=== PATIENT | female | born 1995 | race Caucasian/White ===

== ENCOUNTER 2017-10-11 09:47 | Outpatient (REF) | payer OTHER, SELFPAY ==
[2017-10-12 14:03] LABS: Chlamydia Result Negative; GC Result Negative; Specimen Description CERVIX
== END 2017-10-11 09:48 ==
LOC: LBN 09:47
PROVIDERS: PCP General Practice; Visit Provider Nurse Practitioner Women's Health
DX: Z11.3 Encounter for screening for infections with a predominantly sexual mode of transmission (principal)
CPT/HCPCS: 87491; 87591

== ENCOUNTER 2018-01-18 00:18 | Outpatient (CLI) | payer OTHER, SELFPAY ==
--- NOTE | 2018-01-18 13:50 | DI.US_ITS ---
SYMPTOMS/DIAGNOSIS: RT SIDED PELVIC PAIN, R10.2 PELVIC AND PERINEAL PAIN PELVIC ULTRASOUND: Transabdominal and transvaginal examination was performed. The uterus measures 7.1 cm long x 3.3 cm AP x 5.1 cm transverse. The endometrial stripe is within normal limits at .5 cm. Note is made of an intrauterine device seen within the endometrial canal. There is a small amount of fluid seen within the endometrial canal. Both ovaries were visualized. They are normal in size. Small follicular cysts are seen bilaterally. There is normal blood flow to both ovaries. No evidence of torsion or ovarian mass is seen. There is a small amount of free fluid seen in the pelvis adjacent to the left ovary and along the fundus of the uterus. This is likely physiologic. IMPRESSION: Intrauterine device in good position within the endometrial canal, otherwise negative examination.
== END 2018-01-18 00:38 ==
PROVIDERS: PCP General Practice; Visit Provider Nurse Practitioner Women's Health
DX: R10.2 Pelvic and perineal pain (principal); R10.31 Right lower quadrant pain; Z97.5 Presence of (intrauterine) contraceptive device
CPT/HCPCS: 76830; 76856

== ENCOUNTER 2018-05-09 20:09 | Emergency (ER) | payer OTHER, SELFPAY ==
[2018-05-09 20:15] VITALS: BP 123/70; PULSE 84; RESP 16; TEMP 36.3; O2SAT 99
--- NOTE | 2018-05-09 20:31 | W.ED.GENAD ---
Discharge Plan Disposition Patient Disposition: HOME Discharge Details Chief Complaint: Orthopedic Clinical Impression: Contusion of foot, right Primary Care Provider: None,None ED Provider: Yvan Aguirre Home Meds and New Rx's Prescriptions: Continued ibuprofen 800 mg tablet 800 mg PO TID PRN (Reason: pain) Qty: 30 RF: 1 norgestimate-ethinyl estradiol [Ortho Tri-Cyclen (28)] 0.18/0.215/0.25 mg-35 mcg (28) tablet 1 tab PO DAILY Qty: 84 RF: 4 lamotrigine [Lamictal] 150 mg Tablet 150 mg PO DAILY RF: 0 Discharge Instructions Instructions: Foot Contusion (ED) Additional Instructions: Use crutches and orthopedic foot splint over the next 1-2 weeks. You may bear weight as tolerated. Please take ibuprofen over the counter - dose according to label. Keep foot elevated when seated to reduce swelling. Follow-up with your primary care physician as needed and if pain persists greater than 1 week. Return to the ER for any worsening or new concerning symptoms. Medical Decision Making 20:35 --23-year-old female here with right dorsal foot pain after dropping 45 pound weight on her foot 2 hours prior to arrival. TTP over 1-3 MT dorsally. Neurovascular intact distally. Concern for fracture versus contusion. Plan to treat with ibuprofen and check foot x-ray. 21:33 -- foot xray interpreted by radiology: IMPRESSION: Negative for acute skeletal pathology. Suspect contusion. Ortho shoe and crutches provided. Usual and customary discharge instructions were reviewed with patient. HPI General Mode of arrival: ambulatory. Date/Time Provider Initiated Documentation: 05/09/18 20:21. Limitations to Documentation: no limitations. Information obtained by: patient. HPI Narrative: 23-year-old female presents with chief complaint of foot pain. Patient notes that she accidentally dropped a 45 pound weight on her right foot about 2 hours prior to arrival. She has had pain in her foot since the trauma. Pain is mild and worse with movement of her great toe, on palpation of her dorsal foot or with ambulation. She has some tingling in her toes. Related Data Home Medications Medication Instructions Recorded Confirmed ibuprofen 800 mg tablet 800 mg PO TID PRN #30 tab 01/29/18 05/09/18 norgestimate-ethinyl estradiol 1 tab PO DAILY #84 tab 11/30/18 03/07/19 0.18 mg/0.215mg/0.25mg-35 mcg(28)tablet lamotrigine [Lamictal] 150 mg PO DAILY 05/09/18 05/09/18 Previous Rx's Medication Instructions Recorded ibuprofen 800 mg tablet 800 mg PO TID PRN #30 tab 01/29/18 norgestimate-ethinyl estradiol 1 tab PO DAILY #84 tab 02/01/18 0.18 mg/0.215mg/0.25mg-35 mcg(28)tablet Allergies Allergy/AdvReac Type Severity Reaction Status Date / Time bees Allergy Uncoded 05/09/18 20:17 General Stated Complaint: Orthopedic PORFIRIO: 4 Review of Systems Musculoskeletal Reports as per HPI Integumentary/Breasts Reports other (No laceration) [facility] Medical History acne facial Surgical History Repair, ACL Family History Other Diabetes Heart disease Mental disorder Social History Smoking and Tabacco status: Never Exam Const General: cooperative and healthy appearing Orientation: alert and awake Cardio Rate: regular rate Rhythm: regular rhythm Pulses: dorsalis pedis pulses present Skin Trauma: no lacerations Extrem Right lower extremity: foot Details: normal capillary refill and tenderness Location: of the dorsal foot Location: medially; no laceration Course Vital Signs Temperature 36.3 C L 05/09/18 20:15 Pulse 84 05/09/18 20:15 Respiratory Rate 16 05/09/18 20:15 Blood Pressure 123/70 05/09/18 20:15 Pulse Oximetry 99 05/09/18 20:15 Temperature 36.3 C L 05/09/18 20:15 Temperature Source Skin 05/09/18 20:15 Pulse 84 05/09/18 20:15 Respiratory Rate 16 05/09/18 20:15 Respiratory Effort 05/09/18 20:18 Blood Pressure 123/70 05/09/18 20:15 Blood Pressure Position Sitting 05/09/18 20:15 Pulse Oximetry 99 05/09/18 20:15 Oxygen Delivery Method Room Air 05/09/18 20:15 Oxygen Flow Rate 0 05/09/18 20:15
[2018-05-09] MEDS: Ibuprofen 600 MG TAB PO (20:34)
--- NOTE | 2018-05-09 20:36 | ED.GENADUL_ITS ---
Discharge Plan Disposition Patient Disposition: HOME Discharge Details Chief Complaint: Orthopedic Clinical Impression: Contusion of foot, right Primary Care Provider: None,None ED Provider: Yvan Aguirre Home Meds and New Rx's Prescriptions: Continued ibuprofen 800 mg tablet 800 mg PO TID PRN (Reason: pain) Qty: 30 RF: 1 norgestimate-ethinyl estradiol [Ortho Tri-Cyclen (28)] 0.18/0.215/0.25 mg-35 mcg (28) tablet 1 tab PO DAILY Qty: 84 RF: 4 lamotrigine [Lamictal] 150 mg Tablet 150 mg PO DAILY RF: 0 Discharge Instructions Instructions: Foot Contusion (ED) Additional Instructions: Use crutches and orthopedic foot splint over the next 1-2 weeks. You may bear weight as tolerated. Please take ibuprofen over the counter - dose according to label. Keep foot elevated when seated to reduce swelling. Follow-up with your primary care physician as needed and if pain persists greater than 1 week. Return to the ER for any worsening or new concerning symptoms. Medical Decision Making 20:35 --23-year-old female here with right dorsal foot pain after dropping 45 pound weight on her foot 2 hours prior to arrival. TTP over 1-3 MT dorsally. Neurovascular intact distally. Concern for fracture versus contusion. Plan to treat with ibuprofen and check foot x-ray. 21:33 -- foot xray interpreted by radiology: IMPRESSION: Negative for acute skeletal pathology. Suspect contusion. Ortho shoe and crutches provided. Usual and customary discharge instructions were reviewed with patient. HPI General Mode of arrival: ambulatory . Date/Time Provider Initiated Documentation: 05/09/18 20:21 . Limitations to Documentation: no limitations . Information obtained by: patient . HPI Narrative: 23-year-old female presents with chief complaint of foot pain. Patient notes that she accidentally dropped a 45 pound weight on her right foot about 2 hours prior to arrival. She has had pain in her foot since the trauma. Pain is mild and worse with movement of her great toe, on palpation of her dorsal foot or with ambulation. She has some tingling in her toes. Related Data Home Medications Medication Instructions Recorded Confirmed ibuprofen 800 mg tablet 800 mg PO TID PRN #30 tab 01/29/18 05/09/18 norgestimate-ethinyl estradiol 1 tab PO DAILY #84 tab 11/30/18 03/07/19 0.18 mg/0.215mg/0.25mg-35 mcg(28)tablet lamotrigine [Lamictal] 150 mg PO DAILY 05/09/18 05/09/18 Previous Rx's Medication Instructions Recorded ibuprofen 800 mg tablet 800 mg PO TID PRN #30 tab 01/29/18 norgestimate-ethinyl estradiol 1 tab PO DAILY #84 tab 02/01/18 0.18 mg/0.215mg/0.25mg-35 mcg(28)tablet Allergies Allergy/AdvReac Type Severity Reaction Status Date / Time bees Allergy Uncoded 05/09/18 20:17 General Stated Complaint: Orthopedic PORFIRIO: 4 Review of Systems Musculoskeletal Reports as per HPI Integumentary/Breasts Reports other (No laceration) [facility] Medical History acne facial Surgical History Repair, ACL Family History Other Diabetes Heart disease Mental disorder Social History Smoking and Tabacco status: Never Exam Const General: cooperative and healthy appearing Orientation: alert and awake Cardio Rate: regular rate Rhythm: regular rhythm Pulses: dorsalis pedis pulses present Skin Trauma: no lacerations Extrem Right lower extremity: foot Details: normal capillary refill and tenderness Location: of the dorsal foot Location: medially; no laceration Course Vital Signs Temperature 36.3 C L 05/09/18 20:15 Pulse 84 05/09/18 20:15 Respiratory Rate 16 05/09/18 20:15 Blood Pressure 123/70 05/09/18 20:15 Pulse Oximetry 99 05/09/18 20:15 Temperature 36.3 C L 05/09/18 20:15 Temperature Source Skin 05/09/18 20:15 Pulse 84 05/09/18 20:15 Respiratory Rate 16 05/09/18 20:15 Respiratory Effort 05/09/18 20:18 Blood Pressure 123/70 05/09/18 20:15 Blood Pressure Position Sitting 05/09/18 20:15 Pulse Oximetry 99 05/09/18 20:15 Oxygen Delivery Method Room Air 05/09/18 20:15 Oxygen Flow Rate 0 05/09/18 20:15
--- NOTE | 2018-05-09 20:41 | DI.RAD_ITS ---
SYMPTOMS/DIAGNOSIS: PAIN IN FOOT RIGHT FOOT: Three views. No acute fracture or dislocation is identified.
--- NOTE | 2018-05-09 21:20 | DI.VRAD_ITS ---
EXAM: XR Right Foot Complete, 3 or more Views EXAM DATE/TIME: 05/09/2018 8:31 PM CLINICAL HISTORY: 23 years old, female; Injury or trauma; Injury history: 40lb weight fell onto foot; Initial encounter; Blunt trauma; Right; Injury date: 05/09/2018 TECHNIQUE: XR Right foot 3 or more views. COMPARISON: No relevant prior studies available. FINDINGS: Bones/joints: Osseous anatomic alignment is well preserved. No acutely displaced fracture or dislocation. Joint spaces are well preserved. Soft tissues: Normal. IMPRESSION: Negative for acute skeletal pathology. Dictated and Authenticated by: Bassam Baumann MD. Ordering:DAQUAN Santoro MD
== END 2018-05-09 21:37 | disposition home or self-care (01) ==
PROVIDERS: Emergency Provider Student in an Organized Health Care Education/Training Program
DX: S90.31XA Contusion of right foot, initial encounter (principal); W20.8XXA Other cause of strike by thrown, projected or falling object, initial encounter
CPT/HCPCS: 29515; 99283; 73630; 99282; E0114

== ENCOUNTER 2018-07-24 12:08 | Outpatient (CLI) | payer OTHER, SELFPAY ==
--- NOTE | 2018-07-24 13:11 | DI.US_ITS ---
SYMPTOMS/DIAGNOSIS: RIGHT-SIDED PELVIC PAIN, DYSPAREUNIA; H/O RIGHT OVARIAN CYST RUPTURE 1 YEAR AGO PELVIC ULTRASOUND: Comparison is made with January,. The uterus measures 6.9 x 3.3 x 4.1 cm. The endometrial stripe measures 2 mm in thickness. The IUD has been removed since the previous exam. No fibroids are seen. The ovaries are normal in size and appearance and show multiple follicles bilaterally. The largest follicle is on the left ovary measuring 1 x 1.8 cm. No free fluid or hydronephrosis is seen. IMPRESSION: Pelvic ultrasound is within normal limits. There is no evidence of ovarian cyst or torsion.
== END 2018-07-24 12:28 ==
PROVIDERS: Visit Provider Nurse Practitioner Women's Health
DX: R10.2 Pelvic and perineal pain (principal); N94.10 Unspecified dyspareunia; N83.01 Follicular cyst of right ovary; N83.02 Follicular cyst of left ovary
CPT/HCPCS: 76830; 76856

== ENCOUNTER 2019-04-10 10:44 | Outpatient (REF) | payer OTHER, SELFPAY ==
--- NOTE | 2019-04-10 10:30 | PAPFT_PTH ---
PATIENT: LEONORA KINGSTON LOC: [facility] U#:[id number] AGE/SX: 24/F ROOM: RE04/10/[address]: ABHIJEET Crook : 1995 BED: DIS: 04/10/2019 SPEC #: [id number] RECD: 04/10/19 16:16 STATUS: DENIZ RENegar #: [id number] TREVOR: 04/10/19 10:[address]: Deana Mcallister DEPT: [facility] Cytology RECD BY: Rina Morgan ENTERED: 04/10/19 16:16 SP TYPE: PAPFT EMANUEL DR: None Tissues: 1 - CX/ENDOCX FOR PAP SMEARS Procedures: PAP THIN PREP/UVM Screening Comments: [id number]
[2019-04-11 14:52] LABS: Chlamydia Result Negative (Negative); GC Result Negative (Negative)
== END 2019-04-10 11:04 ==
LOC: LBN 10:44
PROVIDERS: Visit Provider Nurse Practitioner Family
DX: Z11.3 Encounter for screening for infections with a predominantly sexual mode of transmission (principal); Z12.4 Encounter for screening for malignant neoplasm of cervix
CPT/HCPCS: 87491; 87591; 88142

== ENCOUNTER 2019-09-10 03:35 | Emergency (ER) | payer OTHER, SELFPAY ==
[2019-09-10] VITALS (48 sets, daily range): BP systolic 91–113; BP diastolic 43–66; PULSE 76–123; RESP 11–24; TEMP 36.2; O2SAT 94–100
--- NOTE | 2019-09-10 03:45 | ED.GENADUL_ITS ---
Discharge Plan Disposition Patient Disposition: HOME Condition: Stable Discharge Details Chief Complaint: OD/Poison Clinical Impression: Bipolar 1 disorder Primary Care Provider: Unknown,Unknown ED Provider: Mario Collins Home Meds and New Rx's Prescriptions: New lamotrigine [Lamictal] 150 mg tablet 300 mg PO DAILY 2 Days Qty: 4 RF: 0 Continued lamotrigine [Lamictal] 150 mg tablet 300 mg PO DAILY RF: 0 Discharge Instructions Instructions: Bipolar Disorder (ED) Additional Instructions: At this time I am providing you with a total of 4 tablets of your Lamictal as a bridge until you are evaluated by your personal provider on Sunday morning at 830. Please follow-up as scheduled. Please watch for new or worsening symptoms and return to the ER for any concerns. I do recommend that you avoid alcohol as this appears to be a trigger. Medical Decision Making <Kelvin Wolf MD - Last Filed: 09/10/19 06:46> 24 yo female with hx of bipolar comes in with her significant other after she has been drinking alcohol and took 1500mg lamictal tablets around 1am in an attempt to harm her self. SHe arrives intoxicated and crying with no focal deficits and no visible trauma. She denies any drug use other athan alcohol and on exam is slurring her speech, knows her name and where she is but not the time. Will obtain labs and monitor. She does seem very anxious and has attempted to leave the room and I feel in her current intoxicated state she is at risk of harming herself so will medicate with 1mg ativan pt stable sleeping now with sable vitals, labs unremarkable other than etoh of 188. Spoke with poison control who recommended 6 hour observation and tylenol level again around 6am. Will continue to monitor until medically cleared to see mental health 2nd alcohol down to 160 and negative second tylenol, will continue to monitor until 6 hour observation completed. pt signed out to oncoming provider pending continued observation and if medically cleared mental health eval Differential Diagnosis Differential Diagnosis: alcohol intoxication, SI, depression, bipolar Lab Data Lab results reviewed: Yes I reviewed the patient's lab results. <SHOSHANA Sullivan - Last Filed: 09/10/19 10:18> I assumed care of this 24-year-old female at shift change on 09-10-19 at appro ximately [address] Wolf. Plan is that patient should be medically cleared and clinically sober by 9:30 AM and at that point can be evaluated by mental health. Last night she reports drinking alcohol and then taking a total of 10 tablets of her Lamictal. Patient is currently resting comfortably in room 5. She is awake, alert, makes good eye contact, has a normal affect. Head normocephalic, moist mucous membranes, she just finished eating breakfast. Lungs are clear to auscultation, heart, tachycardia 104. Patient appears well, nontoxic. She admits last night that she was under increased stress, drink alcohol which can be her trigger, and then took 10 tablets. She tells me she regrets doing this and does not know exactly what outcome she was hoping for. She denies any suicidal or homicidal ideations now and reports feeling safe, believes that she can be safely discharged from our ER with a plan to follow-up as an outpatient. Her one concern is that after the intentional overdose last night, her significant other did get rid of the rest of her tablets, so she is no longer with any Lamictal. She typically takes 300 mg p.o. at night. I see no indication of an emergent process that would inhibit a mental health evaluation. [facility] human services did evaluate the patient, please see the evaluation performed by Abigail. She feels as though the patient can be s afely discharged. She has made her an outpatient appointment for 8:30 in the morning on Sunday, I will provide 4 tablets of her Lamictal to bridge her until that appointment. Patient was made aware of this plan. She has no additional questions or concerns and is quite comfortable with this plan. She was encouraged to follow-up as already scheduled on Sunday, otherwise return to the ER for new or worsening symptoms. HPI <Kelvin Wolf MD - Last Filed: 09/10/19 06:46> General Mode of arrival: ambulatory . Date/Time Provider Initiated Documentation: 09/10/19 03:36 . Limitations to Documentation: no limitations . Information obtained by: patient . History of Present Illness 24 year old F presents to the emergency department with the chief complaint of took 5 of her lamotrigine pills, described as moderate, No relieving factors improve symptom(s), No exacerbating factors reported . Patient did receive the following treatments prior to arrival, none Related Data Home Medications Medication Instructions Recorded Confirmed lamotrigine 150 mg tablet 300 mg PO DAILY tab 04/10/19 09/10/19 lamotrigine [Lamictal] 300 mg PO DAILY 2 Days #4 tab 09/10/19 Previous Rx's Medication Instructions Recorded lamotrigine [Lamictal] 300 mg PO DAILY 2 Days #4 tab 09/10/19 Allergies Allergy/AdvReac Type Severity Reaction Status Date / Time bee venom protein (honey bee) Allergy Unverified 09/10/19 03:46 General Stated Complaint: OD/Poison PORFIRIO: 2 Review of Systems <Kelvin Wolf MD - Last Filed: 09/10/19 06:46> All systems reviewed & are unremarkable except as noted in HPI and below Constitutional Constitutional: Denies chills, Denies fever(s) and Denies weakness Cardiovascular Cardiovascular: Denies chest pain and Denies dyspnea Respiratory Respiratory: Denies cough and Denies dyspnea Gastrointestinal Gastrointestinal: Denies abdominal pain, Denies nausea and Denies vomiting Musculoskeletal Musculoskeletal: Denies joint swelling Neurologic Neurologic: Denies weakness PFSH <Kelvin Wolf MD - Last Filed: 09/10/19 06:46> Social History Smoking/Tobacco Use Status: Never Alcohol Intake: current Alcohol Intake frequency: a few times a month Drug use: Never Substance use type: does not use Do you feel safe at home: Yes Do you feel safe in your relationship?: Yes Female Reproductive History Menstrual Age of Menarche: 15 control method: pills Exam <Kelvin Wolf MD - Last Filed: 09/10/19 06:46> Const General: anxious Orientation: alert [facility] Head: normal to inspection Ears: external ears normal General nose exam: external nose normal Mouth: moist mucous membranes Eyes General: appearance normal, both eyes and all related structures Neck Neck: normal visual inspection Resp Effort & Inspection: normal respiratory effort and able to speak in complete sentences Cardio Rate: regular rate (HR 90 on my exam) Skin General skin exam: no rashes or lesions noted Neuro General: patient alert Extrem General: normal to inspection Psych Mental Status: mental status grossly normal Course <Kelvin Wolf MD - Last Filed: 09/10/19 06:46> Vital Signs Vital signs: Vital Signs Temperature 36.2 C L 09/10/19 03:38 Pulse 114 H 09/10/19 03:38 Respiratory Rate 16 09/10/19 03:38 Pulse Oximetry 98 09/10/19 03:38 Temperature 36.2 C L 09/10/19 03:38 Temperature Source Skin 09/10/19 03:38 Pulse 114 H 09/10/19 03:38 Respiratory Rate 16 09/10/19 03:38 Blood Pressure Position Sitting 09/10/19 03:38 Pulse Oximetry 98 09/10/19 03:38 Oxygen Delivery Method Room Air 09/10/19 03:38 Oxygen Flow Rate 0 09/10/19 03:38 Sign Out <Kelvin Wolf MD - Last Filed: 09/10/19 06:46> Sign Out Data: Sign Out Comment: lamotrigine OD, observe until 930 and if medically cleared will likely need mental health consult Last updated by Kelvin Wolf MD at 09/10/19 06:47
[2019-09-10 03:57] LABS: Abs Immature Grans 0.01 k/cumm (0.0-0.09); Absolute Basophil Count 0.03 k/cumm (0.0-0.2); Absolute Eosinophil Count 0.19 k/cumm (0.0-0.7); Absolute Lymphocyte Count 2.27 k/cumm (1.2-3.4); Absolute Monocyte Count 0.28 k/cumm (0.11-0.7); Absolute Neutrophil Count 3.04 k/cumm (1.2-6.7); BE (Venous) -1.8 mmol/L (-3-3); Basophils % 0.5; Eosinophils % 3.3; HCO3 (Venous) 23 mmol/L (22-28); HCT 40.6 % (36.0-46.0); HGB 14.1 g/dL (12.0-15.5); Immature Grans % 0.2 %; Mean Corp. HGB Concentration 34.7 g/dL (32.0-36.0); Mean Corpuscular Hemoglobin 30.5 pg (27.0-33.0); Mean Corpuscular Volume 87.7 fL (80-95); Mean Platelet Volume 10.3 fL (8.0-11.0); Monocytes % 4.8; Neutrophils % 52.2; O2 Sat (Venous) 92 % (70-80); Platelet Count 230 x1000/uL (130-400); RBC 4.63 m/cumm (4.00-5.20); RBC Distribution Width 12.8 % (11.7-14.6); TCO2 (Venous) 21 mmol/L (22-29); White Blood Cell Count 5.82 k/cumm (4.4-10.8); pCO2 (Venous) 39 mm/Hg (34-47); pH (Venous) 7.39 (7.35-7.45); pO2 (Venous) 66 mm/Hg (28-44)
[2019-09-10] MEDS: LORazepam 2 MG/ML VIAL 1 MG IVP (04:02)
[2019-09-10 04:08] LABS: HCG Qual (Serum) Negative
[2019-09-10 04:14] LABS: Bilirubin Negative (Negative); Blood Negative (Negative); Clarity Clear (Clear); Glucose Negative (Negative); Ketones Negative (Negative); Leukocyte Esterase Negative (Negative); Nitrite Negative (Negative); Specific Gravity <= 1.005 (1.005-1.025); Urobilinogen 0.2 EU/dL (Up TO 0.2)
--- NOTE | 2019-09-10 04:15 | NUR.NOTE ---
To room 5 with c/o overdose. Per pt boyfriend Fidel [phone], had been out with friends drinking this evening, had disagreement, pt took 1500mg lamictal at approx 0145, with intention to harm self. Pt arrives tearful, answering questions appropriately. Reports hx of bipolar. Per parents pt has therapist she has been seeing x 3 months and a psychiatrist she sees at [facility]. Pt changed to gown, placed on heart monitor. #[id number], med a/o. Discussed plan of care with pt, boyfriend and parents, aware of plan for mental health eval after pt medically cleared.
--- NOTE | 2019-09-10 04:21 | NUR.NOTE ---
Mom Cynthia cell [phone], Dad Kalia cell [phone], parents home phone [phone]. Mom states she will text pt therapist to inform of pt hospitalization.
[2019-09-10 04:25] LABS: Tricyclic Antidepressants Negative (Negative)
[2019-09-10 04:31] LABS: ALT 26 U/L (14-59); AST 24 U/L (15-37); Acetaminophen < 2 ug/mL (10-30); Alkaline Phosphatase 76 U/L (46-116); Anion Gap 12.2 mmol/L (3-11); BUN 13 mg/dL (7-18); Bilirubin, Total 0.2 mg/dL (0.2-1.0); CO2 23.8 mmol/L (21.0-32.0); Calcium 8.9 mg/dL (8.5-10.1); Chloride 107 mmol/L (98-107); ETHANOL BLOOD 188.9 mg/dL (<3); Glucose 97 mg/dL (74-106); Potassium 3.6 mmol/L (3.5-5.1); Sodium 143 mmol/L (136-145); Total Protein 7.9 g/dL (6.4-8.2)
[2019-09-10 04:43] LABS: Creatine Kinase 198 U/L (26-192)
[2019-09-10 04:44] LABS: *AMPHETAMINES SCREEN URINE Negative (Negative); *BARBITURATES SCREEN URINE Negative (Negative); *BENZODIAZEPINES SCREEN URINE Negative (Negative); Cannabinoids THC Negative (Negative); Cocaine Screen,Urine Negative (Negative); METHADONE URINE SCREEN Negative (Negative); OPIATES URINE SCREEN Negative (Negative)
[2019-09-10 06:20] LABS: ETHANOL BLOOD 163.6 mg/dL (<3)
[2019-09-10 06:31] LABS: Acetaminophen < 2 ug/mL (10-30)
--- NOTE | 2019-09-10 06:39 | NUR.NOTE ---
per MD Wolf, pt will be clear for mental health eval at approx 0440.
--- NOTE | 2019-09-10 07:25 | NUR.NOTE ---
Nursing Note: Patient requested her therapist
--- NOTE | 2019-09-10 08:46 | PDOC.CMSAFED ---
- If Service Date Differs Date of service: 09/10/19 Time of Service: 08:46 Care Management Safety Plan Chief Complaint: Cherelle is a 24 year old female who presents in the emergency department with her boyfriend after drinking a large amount of alcohol and taking an overdose of Lamictal reportedly in an attempt to harm herself. CM will respond to ED to assess patient after patient has been medically cleared and assessed by MH screener. If screener deems patient meets criteria for psychiatric stabilization CM will facilitate interdepartmental huddle with [facility] screener for safety planning considerations and meet with patient to review [facility] policy and safety plan, establish individual wishes for treatment and maintain patient rights. In the interim; please note safety plan below to guide patient care while awaiting further assessment in the ED. SAFETY PLAN: 1. Will remain on suicide precautions and in paper clothes. 2. Will remain in room under direct supervision of one-on-one staff at all times provided by [employer], [employer]PECTOR, [employer] horticulture supervisor. 3. May have paper cups, plates, finger foods as well as a cardboard spoon with which to eat meals. 4. Follow [facility] Management of the Admitted Behavioral Health Patient policy. 5. Comfort bath system only. 6. No personal belongings 7. Visitors: No visitors at this time. 8. Activities: None currently. 8. No telephone privileges at this time. 9. Due to VOLUNTARY status, if patient wishes to leave [facility], the [facility] pastoral worker must be contacted to evaluate patient prior to patient exiting the building. If deemed appropriate for inpatient psychiatric care, safety plan will be established with patient, and care team, to adhere to patient goals, identify restrictions based on behavioral status, address nutrition, and determine allowed personal belongings, tools for hygiene and personal care. As well plan will determine level of activity including ambulation, level of supervision, visitors, and determine privileges based on level of acuity, behaviors and level of engagement by patient. DISPOSITION: Cherelle is assessed by [facility] MH screener. She is able to enter into a safety plan, will follow-up with her [facility] team, and is discharged home.
--- NOTE | 2019-09-10 13:13 | PDOC.MHCN_ITS ---
Date of service: 09/10/19 Time of Service: 13:13 Mental Health Crisis Note Presenting Issue How did you arrive at the ED and why did you come: Cherelle came to the ER via her Significant Other after she had been drinking and o.d. on her Lamictal. She was observed for the recomended time and [facility] is requesting eval. Precipitating Factors Cherelle deneid SI and HI this am. She is unsure if her o.d. last night/early this am was a SI attempt as she reports she was drinking which she reports is a gateway for her to o.d. She reported that she does recall arguing with her Significant Other and him dumping the rest of her prescription. Disposition BEHAVIOR: Cherelle is cooperative and engaged. She seems forthcoming with answers almost before asked. She has been appropriate in the ER according to the provider and staff. She expresses concern that she does not have the medication that her boyfriend flushed as it has been helpful. EYE CONTACT: Gayles eye contact is good and appropriate. MOOD: Cherelle seems slightly anxious about her medication situation but otherwise normal. AFFECT: Gayles affect is normal and appropriate to discussion. APPETITE: Cherelle reported that she lost 12 lbs in a week and thinks this was due to high levels of anxiety. She appears healthy however. SLEEP(trouble falling/staying asleep: Cherelle reports poor sleep. She stated that she has Trazadone to help her sleep however, she reports feeling hung over when she does use it. Plan This clinician spoke to Becca Nelson her PMHNP regarding medications and an appointment. Becca will meet with Cherelle Sunday09/12/2019 @ 8:30am for follow up. ER provider agreed to give two doses of her Lamictal to get her through. No other follow up necessary at this time. Cherelle reports that she has a good support network to turn to. Signature Clinician's Name/Title: Abigail Muniz MS, [facility] Emergency Services Clinician
== END 2019-09-10 10:17 | disposition home or self-care (01) ==
PROVIDERS: Emergency Medicine; Emergency Provider Physician Assistant
DX: T42.71XA Poisoning by unspecified antiepileptic and sedative-hypnotic drugs, accidental (unintentional), initial encounter (principal); F10.120 Alcohol abuse with intoxication, uncomplicated; F31.9 Bipolar disorder, unspecified; Y90.6 Blood alcohol level of 120-199 mg/100 ml
CPT/HCPCS: 36415; 80053; 80307; 81025; 82550; 82805; 96374; 99284; 80320; 80329; 81003; 84443; 84703; 85025; J2060

== ENCOUNTER 2019-10-17 20:26 | Emergency (ER) | payer OTHER, SELFPAY ==
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
[2019-10-17 20:33] VITALS: BP 129/72; PULSE 69; RESP 16; TEMP 36.7; O2SAT 97
[2019-10-17 21:08] LABS: Abs Immature Grans 0.02 10^3/uL (0.0-0.06); Absolute Basophil Count 0.04 10^3/uL (0.0-0.2); Absolute Eosinophil Count 0.22 10^3/uL (0.0-0.7); Absolute Monocyte Count 0.55 10^3/uL (0.1-0.8); Absolute Neutrophil Count 5.64 10^3/uL (1.2-6.7); Basophils % 0.5; Eosinophils % 2.6; HCT 39.9 % (36.0-46.0); HGB 13.4 g/dL (11.2-15.7); Immature Grans % 0.2; Lymphocytes % 22.7; MCH 30.6 pg (27.0-33.0); MCHC 33.6 % (32.0-36.0); MCV 91.1 fL (80-95); Monocytes % 6.6; Neutrophils % 67.4; Nucleated RBC 0 %; Platelet Count 189 10^3/uL (130-400); RBC 4.38 10^6/uL (3.93-5.22); RDW 11.9 % (11.7-14.6); RDW-SD 39.8 fL; WBC 8.37 10^3/uL (4.4-10.8)
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
--- NOTE | 2019-10-17 21:09 | DI.CT_ITS ---
EXAM: CT THORACIC SPINE RECONS CLINICAL HISTORY: recon please, pain paraspinal along right scapula. TECHNIQUE: Axial, coronal and sagittal images were reconstructed from the chest CT. CONTRAST MATERIAL: Residual contrast from chest CT. COMPARISON: No exams were available for comparison FINDINGS: Bones: No fractures or dislocations are seen. The alignment of the spine is normal including the cerv icothoracic junction. Soft tissues: The soft tissues of the chest are unremarkable. No large disk herniations are identifie d. IMPRESSION: Normal CT of the thoracic spine. RADIATION DOSE DELIVERED: Total DLP DATA REPOSITORY: All CT scans at this facility are submitted to the National Radiology Data Registry (NRDR) Dose Index Registry (DIR) with the [employer] (A[employer]). RADIATION OPTIMIZATION: All CT scans at this facility use at least one of these dose optimization te chniques: automated exposure control; mA and/or kV adjustment per patient size (includes targeted exa ms where dose is matched to clinical indication); or iterative reconstruction.
[2019-10-17] MEDS: Normal Saline Flush 10 ML SYR IVP (21:18)
[2019-10-17] MEDS: Normal Saline - Diluent 50 ML VIAL IV (21:19)
[2019-10-17] MEDS: Omnipaque 350 MG/ML 100 ML BTL IJ (21:19)
[2019-10-17] MEDS: Lactated Ringers 1,000 ML 1000 ML IV (21:21)
[2019-10-17 21:22] LABS: ALT 29 U/L (14-59); AST 18 U/L (15-37); Albumin 3.8 g/dL (3.4-5.0); Alkaline Phosphatase 64 U/L (46-116); BUN 16 mg/dL (7-18); Bilirubin, Total 0.3 mg/dL (0.2-1.0); CREATININE 1.09 mg/dL (0.55-1.02); Calcium 9.3 mg/dL (8.5-10.1); Chloride 100 mmol/L (98-107); Glucose 85 mg/dL (74-106); Potassium 3.7 mmol/L (3.5-5.1); Sodium 136 mmol/L (136-145); Total Protein 7.8 g/dL (6.4-8.2)
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
--- NOTE | 2019-10-17 21:54 | NUR.NOTE ---
Nursing Note:copied referral to cm for pcp establishment 10/17/19
[2019-10-17] MEDS: Lidocaine 5% Patch 1 PATCH TP (21:55)
[2019-10-17 22:21] VITALS: BP 123/70; PULSE 62; RESP 16; TEMP 36.7; O2SAT 97
--- NOTE | 2019-10-20 09:36 | CMPROGNOTE_ITS ---
- If Service Date Differs Date of service: 10/20/19 Time of Service: 09:36 Care Management Progress Note At the request of ED provider, MELINDA coordinates a referral to radha Odom, of [facility], to assist Cherelle in obtaining a follow up appointment and in establishing with a local PCP.
== END 2019-10-17 22:20 | disposition home or self-care (01) ==
PROVIDERS: Emergency Provider Physician Assistant
DX: R07.81 Pleurodynia (principal); S50.311A Abrasion of right elbow, initial encounter; M62.830 Muscle spasm of back; S40.011A Contusion of right shoulder, initial encounter; V18.0XXA Pedal cycle driver injured in noncollision transport accident in nontraffic accident, initial encounter; Y93.55 Activity, bike riding
CPT/HCPCS: 36415; 80053; 81025; 90471; 96360; 99285; 71260; 85025; J3490; L3650

== ENCOUNTER 2019-12-02 08:58 | Outpatient (CLI) | payer OTHER, SELFPAY ==
[2019-12-05 04:04] LABS: Patient Race White; SARS-CoV-2 RNA Undetected (Undetected); SARS-CoV-2 Specimen Source Nasopharynx
== END 2019-12-02 09:18 ==
PROVIDERS: Visit Provider Family Medicine
DX: Z11.59 Encounter for screening for other viral diseases (principal)
CPT/HCPCS: U0003